=== PATIENT | female | born 1985 | race Caucasian/White ===

== ENCOUNTER 2023-06-10 10:18 | Inpatient (IN) ==
[~2023-06-10 10:18] MED LIST: Buffered Lidocaine 1% SYRIN 1 ml INTRADERM ONE; HYDROcodone/ACETAMIN 5/325 mg TAB PO PRN; Lactated Ringers 1000 ml BAG 1,000 ML IV SCH; Metoclopramide 5 MG/ML VIAL (10 mg) IV PRN; Naloxone 0.4 mg VIAL 0.4 mg/ml 1 ml VIAL IV PRN; Ondansetron 4 mg VIAL 2 MG/ML 2 ml VIAL IV PRN; fentaNYL 100 mcg/2 ml 50 MCG/ML VIAL IV PRN
[2023-06-10] MEDS ORDERED: Heparin 5000 UNITS/ML 1 mL VIAL ONE (10:33)
[2023-06-10] MEDS ORDERED: Clindamycin 900 MG/50 **NS BAG 900 MG/50 ML BAG ONE (10:34)
[2023-06-10] MEDS ORDERED: Ondansetron 4 mg VIAL 2 MG/ML 2 ml VIAL ONE (10:52)
[2023-06-10] MEDS ORDERED: Midazolam 2 mg/2 ml VIAL 1 mg/ml 2 ml VIAL (2 mg) ONE (10:52)
[2023-06-10] MEDS ORDERED: Glycopyrrolate IV 0.2 MG/ML 1 ML VIAL ONE (10:52)
[2023-06-10] MEDS ORDERED: Methylene Blue 0.5 % 50 MG/10 ML AMP IV ONE (10:52)
[2023-06-10] MEDS ORDERED: Propofol 10 MG/ML 20 ML BTL ONE (10:52)
[2023-06-10] MEDS ORDERED: fentaNYL 250 mcg/5 ml 50 MCG/ML 5 ml VIAL (250 MCG) ONE (10:52)
[2023-06-10] MEDS ORDERED: Dexamethasone IV 4 MG/ML VIAL 1 ml VIAL ONE (10:52)
[2023-06-10] MEDS ORDERED: Lidocaine 2% PF 5 ML VIAL ONE (10:52)
[2023-06-10 10:58] LABS: Rapid COVID-19 Molecular Undetected (Undetected)
[2023-06-10] MEDS ORDERED: Rocuronium 50 mg VIAL 10 mg/ml 5 ml VIAL (50 mg) ONE (12:14)
[2023-06-10] MEDS ORDERED: Bupivacaine 0.25% w/EPI 10 ML SDV ONE (12:43)
[2023-06-10] MEDS ORDERED: HYDROmorphone 0.5 MG/0.5 ML SYRINGE ONE ×2 (13:27→13:38)
[2023-06-10] MEDS ORDERED: fentaNYL 100 mcg/2 ml 50 MCG/ML VIAL ONE ×2 (13:38→14:06)
[2023-06-10] MEDS ORDERED: Metoprolol Tartrate 5 mg VIAL 5 ml VIAL (1 mg/ml) ONE (14:06)
[2023-06-10] MEDS ORDERED: Ondansetron 4 mg VIAL 2 MG/ML 2 ml VIAL IV PRN (15:48)
[2023-06-10] MEDS ORDERED: HYDROcodone/ACET. 7.5/325 LIQ 15 ML UDC PO PRN (15:48)
[2023-06-10] MEDS ORDERED: HYDROmorphone 0.5 MG/0.5 ML SYRINGE IV SLOW PU PRN (15:48)
[2023-06-10] MEDS ORDERED: Metoclopramide 5 MG/ML VIAL (10 mg) ONE (16:46)
[2023-06-10] MEDS: Lactated Ringers 1000 ml BAG 1,000 ML IV SCH (18:26)
[2023-06-10] MEDS: Heparin 5000 UNITS/ML 1 mL VIAL SUBCUT SCH (21:40)
[2023-06-11] MEDS: Lactated Ringers 1000 ml BAG 1,000 ML IV SCH ×2 (00:07→08:02)
[2023-06-11] MEDS: Heparin 5000 UNITS/ML 1 mL VIAL SUBCUT SCH (05:50)
[2023-06-11 10:47] VITALS: BP 136/85
[2023-06-11] MEDS ORDERED: D5W 1/2 NS KCl 20 meq 1000 ml 1,000 ML IV SCH (16:00)
== END 2023-06-11 13:47 | disposition home or self-care (01) | DRG 403 ==
LOC: AA 10:18 → SSU 17:17
PROVIDERS: ADMIT Surgery; ATTEND Surgery